=== PATIENT | male | born 1940 | race Caucasian/White ===

== ENCOUNTER 2018-11-28 13:23 | Inpatient (IN) | payer MEDICARE ==
[~2018-11-28] VITALS: Ht 180.3 cm; Wt 75.0 kg
[2018-11-28] MEDS ORDERED: ALBUTEROL/IPRATROPIUM 2.5MG/0.5MG, 3 ML ONE (14:24)
[2018-11-28] MEDS ORDERED: ACETAMINOPHEN 500 MG TABLET ONE (14:26)
[2018-11-28] MEDS ORDERED: ALBUTEROL/IPRATROPIUM 2.5MG/0.5MG, 3 ML NPPB ONE (14:30)
[2018-11-28] MEDS ORDERED: SODIUM CHLORIDE FLUSH 10ML SYR IVF ONE (14:30)
[2018-11-28] MEDS ORDERED: SODIUM CHLORIDE 0.9% 1,000ML IVBOLUS ONE ×2 (14:30→15:30)
[2018-11-28] MEDS ORDERED: ACETAMINOPHEN 500 MG TABLET PO ONE (14:30)
[2018-11-28 14:33] LABS: BASOPHILS # (AUTO) 0.03 x10^3/uL (0-0.1); BASOPHILS % (AUTO) 0 % (0-1); EOSINOPHILS % (AUTO) 0 % (1-7); LYMPHOCYTES # (AUTO) 0.72 x10^3/uL (1-3.4); LYMPHOCYTES % (AUTO) 5 % (22-44); MD NO; MEAN CORPUSCULAR HEMOGLOBIN 34.2 pg (27.5-34.5); MEAN CORPUSCULAR VOLUME 100.7 fL (81-97); MEAN PLATELET VOLUME 9.5 fL (7.4-10.4); MONOCYTES # (AUTO) 0.75 x10^3/uL (0.2-0.8); MONOCYTES % (AUTO) 6 % (2-9); NEUTROPHILS # (AUTO) 11.94 x10^3/uL (1.8-6.8); NEUTROPHILS % (AUTO) 89 % (42-75); PLATELET COUNT 270 x10^3/uL (130-400); RED BLOOD COUNT 4.49 x10^6/uL (4.38-5.82); RED CELL DISTRIBUTION WIDTH 13.6 % (9.4-14.8)
[2018-11-28 14:45] LABS: ALBUMIN 4.3 g/dL (3.4-5.0); ANION GAP 7 mmol/L (5-15); CALCIUM 10.1 mg/dL (8.5-10.1); CHLORIDE 96 mmol/L (98-107)
[2018-11-28 14:50] LABS: CREATININE 1.38 mg/dL (0.7-1.3)
[2018-11-28 14:58] LABS: RAPID INFLUENZA A Negative (Negative); RAPID INFLUENZA B Negative (Negative)
[2018-11-28] MEDS ORDERED: CEFTRIAXONE PMX 1GM/50ML 50 ML ONE (15:21)
[2018-11-28] MEDS ORDERED: AZITHROMYCIN 500 MG in SODIUM CHLORIDE 0.9% 250 ML IV ONE (15:30)
[2018-11-28] MEDS ORDERED: CEFTRIAXONE PMX 1GM/50ML 50 ML IVPB ONE (15:30)
[2018-11-28 15:47] LABS: MICROSCOPIC AUTO
[2018-11-28 16:00] LABS: CULTURE INDICATED? NO
--- NOTE | 2018-11-28 16:21 | NUR ---
TASK RN: NO S/S OF ABX RXN NOTED. SECOND ABX INITIATED. BC X TWO DRAWN PRIOR TO ADMIN.
[2018-11-28] MEDS ORDERED: ACETAMINOPHEN 325 MG TABLET PO PRN (16:30)
[2018-11-28] MEDS ORDERED: OXYcodone IR 5MG TABLET PO PRN (16:30)
[2018-11-28] MEDS ORDERED: DOCUSATE 100 MG CAPSULE PO PRN (16:30)
[2018-11-28] MEDS ORDERED: ENOXAPARIN 40 MG/0.4 ML SQ SCH (16:30)
[2018-11-28] MEDS ORDERED: LABETALOL 5MG/ML, 20ML IVPush PRN (16:30)
[2018-11-28] MEDS ORDERED: GUAIFENESIN/COD200MG-20MG/10ML LIQUID PO PRN (16:30)
[2018-11-28] MEDS ORDERED: ONDANSETRON 2MG/ML, 2ML IVPush PRN (16:30)
[2018-11-28] MEDS ORDERED: NITROGLYCERIN 0.4 MG BOTTLE (25 TABS) SL PRN (16:30)
[2018-11-28 17:29] VITALS: BP 120/75
[2018-11-28] MEDS: LACTATED RINGERS 1,000 ML IV SCH (18:05)
[2018-11-28] MEDS ORDERED: ALBUTEROL/IPRATROPIUM 2.5MG/0.5MG, 3 ML NPPB SCH (19:00)
[2018-11-28 19:15] VITALS: BP 115/66
[2018-11-28] MEDS ORDERED: ALBUTEROL SULFATE 2.5 MG/3 ML NPPB PRN (19:30)
[2018-11-28] MEDS: ALBUTEROL/IPRATROPIUM 2.5MG/0.5MG, 3 ML NPPB SCH (19:59)
[2018-11-28] MEDS: BUDESONIDE 0.5 MG/2 ML INHA NPPB SCH (19:59)
[2018-11-28 21:12] LABS: TROPONIN I 0.672 ng/mL (0.000-0.045)
[2018-11-29] MEDS ORDERED: MAGNESIUM SULFATE PMX 4GM/100M 100 ML IVPB ONE (01:00)
[2018-11-29 01:17] VITALS: BP 144/84
[2018-11-29] MEDS: ALBUTEROL/IPRATROPIUM 2.5MG/0.5MG, 3 ML NPPB SCH ×4 (03:35→21:50)
[2018-11-29] MEDS: LACTATED RINGERS 1,000 ML IV SCH (05:08)
[2018-11-29 06:09] LABS: MEAN CORPUSCULAR HEMOGLOBIN 33.2 pg (27.5-34.5); MEAN CORPUSCULAR HGB CONC 33.3 g/dL (33.2-36.2); MEAN CORPUSCULAR VOLUME 99.7 fL (81-97); MEAN PLATELET VOLUME 9.5 fL (7.4-10.4); PLATELET COUNT 209 x10^3/uL (130-400); RED CELL DISTRIBUTION WIDTH 13.5 % (9.4-14.8)
[2018-11-29 06:19] LABS: ANION GAP 9 mmol/L (5-15); CALCIUM 8.6 mg/dL (8.5-10.1); CHLORIDE 101 mmol/L (98-107); CREATININE 1.19 mg/dL (0.7-1.3)
[2018-11-29 06:50] VITALS: BP 123/77
[2018-11-29 06:51] LABS: MD SCAN
[2018-11-29 06:53] LABS: BASOPHILS % (AUTO) 0 % (0-1); EOSINOPHILS % (AUTO) 0 % (1-7); LYMPHOCYTES # (AUTO) 0.23 x10^3/uL (1-3.4); LYMPHOCYTES % (AUTO) 2 % (22-44); MONOCYTES # (AUTO) 0.71 x10^3/uL (0.2-0.8); MONOCYTES % (AUTO) 6 % (2-9); NEUTROPHILS # (AUTO) 11.47 x10^3/uL (1.8-6.8); NEUTROPHILS % (AUTO) 93 % (42-75)
[2018-11-29] MEDS ORDERED: ATORVASTATIN 80 MG TABLET ONE (08:53)
[2018-11-29] MEDS ORDERED: METOPROLOL TARTRATE 25 MG TABLET ONE (08:53)
[2018-11-29] MEDS ORDERED: ASPIRIN 325 MG TABLET ONE (08:54)
[2018-11-29] MEDS ORDERED: POTASSIUM CHLORIDE 20 MEQ TAB.ER.PRT ONE (08:54)
[2018-11-29] MEDS: METOPROLOL TARTRATE 25 MG TABLET PO SCH ×2 (08:56→17:51)
[2018-11-29] MEDS: ATORVASTATIN 80 MG TABLET PO SCH ×2 (08:56→21:44)
[2018-11-29] MEDS: POTASSIUM CHLORIDE 20 MEQ TAB.ER.PRT PO SCH ×2 (08:56→14:09)
[2018-11-29] MEDS: ASPIRIN 325 MG TABLET PO SCH (08:56)
[2018-11-29] MEDS: BUDESONIDE 0.5 MG/2 ML INHA NPPB SCH ×2 (09:00→16:15)
[2018-11-29] MEDS ORDERED: TIOT18CA INH (10:49)
[2018-11-29] MEDS ORDERED: AMLO10TA8 PO (10:49)
[2018-11-29] MEDS: ENOXAPARIN 80 MG/0.8 ML SQ SCH (12:24)
[2018-11-29] MEDS: AZITHROMYCIN 500 MG in SODIUM CHLORIDE 0.9% 250 ML IV SCH (12:25)
[2018-11-29 12:26] VITALS: BP 149/85
[2018-11-29] MEDS: CEFTRIAXONE PMX 1GM/50ML 50 ML IV SCH (14:04)
[2018-11-29 20:22] VITALS: BP 135/76
[2018-11-30] MEDS: ENOXAPARIN 80 MG/0.8 ML SQ SCH (00:48)
[2018-11-30 02:13] VITALS: BP 167/81
[2018-11-30] MEDS: ALBUTEROL/IPRATROPIUM 2.5MG/0.5MG, 3 ML NPPB SCH ×4 (03:30→22:05)
[2018-11-30] MEDS: ASPIRIN 325 MG TABLET PO SCH (05:24)
[2018-11-30] MEDS: METOPROLOL TARTRATE 25 MG TABLET PO SCH ×2 (05:25→17:53)
[2018-11-30 06:19] LABS: BASOPHILS % (AUTO) 0 % (0-1); EOSINOPHILS % (AUTO) 0 % (1-7); LYMPHOCYTES # (AUTO) 0.55 x10^3/uL (1-3.4); LYMPHOCYTES % (AUTO) 4 % (22-44); MD NO; MEAN CORPUSCULAR HEMOGLOBIN 34.4 pg (27.5-34.5); MEAN CORPUSCULAR HGB CONC 34.3 g/dL (33.2-36.2); MEAN CORPUSCULAR VOLUME 100.3 fL (81-97); MEAN PLATELET VOLUME 9.8 fL (7.4-10.4); MONOCYTES # (AUTO) 0.98 x10^3/uL (0.2-0.8); MONOCYTES % (AUTO) 8 % (2-9); NEUTROPHILS # (AUTO) 11.24 x10^3/uL (1.8-6.8); NEUTROPHILS % (AUTO) 88 % (42-75); PLATELET COUNT 205 x10^3/uL (130-400); RED BLOOD COUNT 3.59 x10^6/uL (4.38-5.82); RED CELL DISTRIBUTION WIDTH 13.6 % (9.4-14.8)
[2018-11-30 06:34] LABS: ANION GAP 7 mmol/L (5-15); CALCIUM 8.7 mg/dL (8.5-10.1); CHLORIDE 102 mmol/L (98-107)
[2018-11-30 06:39] LABS: CREATININE 1.02 mg/dL (0.7-1.3)
[2018-11-30 07:13] VITALS: BP 167/82
[2018-11-30] MEDS: BUDESONIDE 0.5 MG/2 ML INHA NPPB SCH ×2 (09:28→22:05)
[2018-11-30] MEDS: AZITHROMYCIN 500 MG in SODIUM CHLORIDE 0.9% 250 ML IV SCH (11:48)
[2018-11-30] MEDS: CEFTRIAXONE PMX 1GM/50ML 50 ML IV SCH (13:38)
[2018-11-30 13:46] VITALS: BP 162/79
[2018-11-30 18:52] VITALS: BP 151/81
[2018-11-30] MEDS: ATORVASTATIN 80 MG TABLET PO SCH (20:38)
[2018-12-01] MEDS: ALBUTEROL/IPRATROPIUM 2.5MG/0.5MG, 3 ML NPPB SCH ×5 (02:15→20:35)
[2018-12-01 03:51] VITALS: BP 152/62
[2018-12-01] MEDS: ASPIRIN 325 MG TABLET PO SCH (05:29)
[2018-12-01] MEDS: METOPROLOL TARTRATE 25 MG TABLET PO SCH (05:30)
[2018-12-01 06:01] LABS: ANION GAP 5 mmol/L (5-15); BASOPHILS % (AUTO) 0 % (0-1); CALCIUM 8.9 mg/dL (8.5-10.1); CHLORIDE 102 mmol/L (98-107); EOSINOPHILS % (AUTO) 0 % (1-7); LYMPHOCYTES # (AUTO) 0.49 x10^3/uL (1-3.4); LYMPHOCYTES % (AUTO) 5 % (22-44); MD NO; MEAN CORPUSCULAR HEMOGLOBIN 33.5 pg (27.5-34.5); MEAN CORPUSCULAR HGB CONC 33.5 g/dL (33.2-36.2); MEAN CORPUSCULAR VOLUME 100.1 fL (81-97); MEAN PLATELET VOLUME 9.3 fL (7.4-10.4); MONOCYTES # (AUTO) 1.01 x10^3/uL (0.2-0.8); MONOCYTES % (AUTO) 11 % (2-9); NEUTROPHILS # (AUTO) 8.17 x10^3/uL (1.8-6.8); NEUTROPHILS % (AUTO) 84 % (42-75); PLATELET COUNT 227 x10^3/uL (130-400); RED BLOOD COUNT 3.69 x10^6/uL (4.38-5.82); RED CELL DISTRIBUTION WIDTH 13.4 % (9.4-14.8)
[2018-12-01 06:02] LABS: CREATININE 1.01 mg/dL (0.7-1.3)
[2018-12-01] MEDS: BUDESONIDE 0.5 MG/2 ML INHA NPPB SCH ×2 (07:44→20:35)
[2018-12-01 08:06] VITALS: BP 181/89
[2018-12-01] MEDS ORDERED: METOPROLOL TARTRATE 25 MG TABLET PO ONE (09:00)
[2018-12-01] MEDS ORDERED: LABETALOL 5 MG/ML SYRINGE IVPush PRN (09:00)
[2018-12-01] MEDS: ENOXAPARIN 40 MG/0.4 ML SQ SCH (09:26)
[2018-12-01 09:28] VITALS: BP 163/86
[2018-12-01] MEDS ORDERED: ENOXAPARIN 80 MG/0.8 ML SQ SCH (10:00)
[2018-12-01] MEDS: AZITHROMYCIN 500 MG in SODIUM CHLORIDE 0.9% 250 ML IV SCH (12:05)
[2018-12-01 12:45] VITALS: BP 161/78
[2018-12-01] MEDS: CEFTRIAXONE PMX 1GM/50ML 50 ML IV SCH (14:09)
[2018-12-01] MEDS ORDERED: FUROSEMIDE 40 MG/4 ML IV ONE (15:00)
[2018-12-01] MEDS: CARVEDILOL 6.25 MG TABLET PO SCH (17:16)
[2018-12-01] MEDS: ATORVASTATIN 80 MG TABLET PO SCH (21:01)
[2018-12-01 21:29] VITALS: BP 154/86
[2018-12-02 02:25] VITALS: BP 165/96
[2018-12-02] MEDS: ALBUTEROL/IPRATROPIUM 2.5MG/0.5MG, 3 ML NPPB SCH ×3 (03:24→15:25)
[2018-12-02 05:33] VITALS: BP 154/70
[2018-12-02] MEDS: ASPIRIN 325 MG TABLET PO SCH (05:34)
[2018-12-02] MEDS: CARVEDILOL 6.25 MG TABLET PO SCH (05:35)
[2018-12-02 07:48] VITALS: BP 160/87
[2018-12-02 07:50] LABS: CHLORIDE 96 mmol/L (98-107)
[2018-12-02 07:54] LABS: ANION GAP 5 mmol/L (5-15); CALCIUM 8.9 mg/dL (8.5-10.1); CREATININE 0.95 mg/dL (0.7-1.3)
[2018-12-02] MEDS: ENOXAPARIN 40 MG/0.4 ML SQ SCH (08:16)
[2018-12-02] MEDS: BUDESONIDE 0.5 MG/2 ML INHA NPPB SCH (10:00)
[2018-12-02] MEDS: AZITHROMYCIN 500 MG in SODIUM CHLORIDE 0.9% 250 ML IV SCH (12:17)
[2018-12-02] MEDS: CEFTRIAXONE PMX 1GM/50ML 50 ML IV SCH (13:14)
[2018-12-02] MEDS ORDERED: ASPI325T17 PO (16:36)
[2018-12-02] MEDS ORDERED: PRED10TA PO (16:39)
[2018-12-02] MEDS ORDERED: ALBU8.5H8 IH (16:39)
[2018-12-02] MEDS ORDERED: ATOR-2 PO (16:39)
[2018-12-02] MEDS ORDERED: CARV6.2512 PO (16:39)
[2018-12-02] MEDS ORDERED: AMOX1TAB12 PO (16:40)
== END 2018-12-02 18:59 | disposition home or self-care (01) | DRG 871 ==
LOC: ED 15:27 → EDIP 15:28 → ED 15:45 → 4EST 17:09 → UNDODISIN 12-02 17:49
PROVIDERS: ADMIT Internal Medicine; ATTEND Internal Medicine
DX: A41.9 Sepsis, unspecified organism (principal); J96.01 Acute respiratory failure with hypoxia; J18.9 Pneumonia, unspecified organism; E87.1 Hypo-osmolality and hyponatremia; J44.0 Chronic obstructive pulmonary disease with (acute) lower respiratory infection; E83.39 Other disorders of phosphorus metabolism; R65.20 Severe sepsis without septic shock; E83.42 Hypomagnesemia; E87.6 Hypokalemia; I11.0 Hypertensive heart disease with heart failure; I50.9 Heart failure, unspecified; Z96.1 Presence of intraocular lens; I25.10 Atherosclerotic heart disease of native coronary artery without angina pectoris; I27.20 Pulmonary hypertension, unspecified; K44.9 Diaphragmatic hernia without obstruction or gangrene; Z87.891 Personal history of nicotine dependence; Z98.41 Cataract extraction status, right eye; Z98.42 Cataract extraction status, left eye
CPT/HCPCS: 0399T; 36415; 71045; 71046; 80048; 81001; 82040; 83605; 83735; 83880; 84100; 84145; 84484; 85025; 87040; 87400; 93005; 93306; 94640; 96361; 96365; 99285; G0378; J0456; J0696; J1650; J1940; J7620; J7626; J3475; J7030; J7050; J7120; J7512

== ENCOUNTER → 2019-01-06 | Outpatient (CLI) | payer MEDICARE ==
[~2019-01-06] MED LIST: ALBU8.5H8 IH; AMLO10TA8 PO; AMOX1TAB12 PO; ASPI325T17 PO; ATOR-2 PO; CARV6.2512 PO; PRED10TA PO; TIOT18CA INH
== END | disposition home or self-care (01) ==
LOC: CFH 09:00
PROVIDERS: ATTEND Internal Medicine Cardiovascular Disease
DX: J98.11 Atelectasis (principal); K44.9 Diaphragmatic hernia without obstruction or gangrene; E78.2 Mixed hyperlipidemia; I10 Essential (primary) hypertension; I25.10 Atherosclerotic heart disease of native coronary artery without angina pectoris
CPT/HCPCS: 71046

== ENCOUNTER 2019-01-22 09:58 | Day surgery (SDC) | payer MEDICARE ==
[2019-01-20 09:14] VITALS: BP 144/85
[2019-01-20 10:38] LABS: BASOPHILS # (AUTO) 0.01 x10^3/uL (0-0.1); BASOPHILS % (AUTO) 0 % (0-1); EOSINOPHILS # (AUTO) 0.01 x10^3/uL (0-0.4); EOSINOPHILS % (AUTO) 0 % (1-7); LYMPHOCYTES # (AUTO) 1.01 x10^3/uL (1-3.4); LYMPHOCYTES % (AUTO) 13 % (22-44); MD NO; MEAN CORPUSCULAR HEMOGLOBIN 34.1 pg (27.5-34.5); MEAN CORPUSCULAR HGB CONC 34.1 g/dL (33.2-36.2); MEAN CORPUSCULAR VOLUME 99.8 fL (81-97); MEAN PLATELET VOLUME 9.2 fL (7.4-10.4); MONOCYTES # (AUTO) 0.87 x10^3/uL (0.2-0.8); MONOCYTES % (AUTO) 11 % (2-9); NEUTROPHILS # (AUTO) 6.19 x10^3/uL (1.8-6.8); NEUTROPHILS % (AUTO) 77 % (42-75); PLATELET COUNT 240 x10^3/uL (130-400); RED BLOOD COUNT 3.52 x10^6/uL (4.38-5.82); RED CELL DISTRIBUTION WIDTH 13.9 % (9.4-14.8)
[2019-01-20 10:48] LABS: ANION GAP 4 mmol/L (5-15); CALCIUM 9.2 mg/dL (8.5-10.1); CHLORIDE 101 mmol/L (98-107); CREATININE 1.07 mg/dL (0.7-1.3)
[~2019-01-22] VITALS: Ht 180.3 cm; Wt 72.7 kg
[~2019-01-22 09:58] MED LIST changes: +ALBU8.5H8 INH; +ASPI-496 PO; +FURO20TA3 PO; +IRBE150T25 PO; +POTA10TA6 PO; +potassium chloride PO
[2019-01-22] MEDS ORDERED: SODIUM CHLORIDE 0.9% 1,000 ML IV SCH ×2 (10:23→13:25)
[2019-01-22] MEDS ORDERED: ASPIRIN 325 MG TABLET EC PO ONE (10:30)
[2019-01-22] MEDS ORDERED: FURO20TA3 PO (10:35)
[2019-01-22] MEDS ORDERED: NITROGLYCERIN 5 MG/ML, 10ML ONE (10:37)
[2019-01-22] MEDS ORDERED: ASPIRIN 325 MG TABLET EC ONE (10:46)
[2019-01-22 11:01] LABS: ANION GAP 7 mmol/L (5-15); CALCIUM 9.5 mg/dL (8.5-10.1); CHLORIDE 105 mmol/L (98-107); CREATININE 1.13 mg/dL (0.7-1.3)
[2019-01-22] MEDS ORDERED: MIDAZOLAM 1 MG/ML, 5ML ONE (11:35)
[2019-01-22] MEDS ORDERED: HEPARIN 1,000 UNITS/ML, 10ML ONE (11:36)
[2019-01-22] MEDS ORDERED: FENTANYL PF 100 MCG/2ML ONE (11:36)
[2019-01-22] MEDS ORDERED: LIDOCAINE-MPF 1%, 5ML ONE (11:36)
[2019-01-22] MEDS ORDERED: VERAPAMIL 2.5 MG/ML, 2ML ONE (11:36)
[2019-01-22] MEDS ORDERED: BIVALIRUDIN 250 MG ONE (12:07)
== END 2019-01-22 15:30 | disposition home or self-care (01) ==
LOC: CACL 09:58
PROVIDERS: ATTEND Internal Medicine Cardiovascular Disease
DX: I25.10 Atherosclerotic heart disease of native coronary artery without angina pectoris (principal); I25.83 Coronary atherosclerosis due to lipid rich plaque; I25.84 Coronary atherosclerosis due to calcified coronary lesion; I35.0 Nonrheumatic aortic (valve) stenosis; I77.1 Stricture of artery; I10 Essential (primary) hypertension; E78.2 Mixed hyperlipidemia; J44.9 Chronic obstructive pulmonary disease, unspecified; Z79.82 Long term (current) use of aspirin; Z79.899 Other long term (current) drug therapy; Z87.01 Personal history of pneumonia (recurrent); Z99.81 Dependence on supplemental oxygen; Z95.5 Presence of coronary angioplasty implant and graft
CPT/HCPCS: 36415; 75625; 80048; 85025; 93454; 99156; C1769; C1894; J1644; J2250; J3010; Q9967; J0583

== ENCOUNTER → 2019-02-24 | Outpatient (CLI) | payer MEDICARE ==
[~2019-02-24] MED LIST changes: +METOPROLOL 1 MG/ML, 5ML ONE; +VISIPAQUE 320 MG/ML, 150ML BOTTLE ONE
[2019-02-24 12:46] LABS: CREATININE 1.23 mg/dL (0.7-1.3)
== END | disposition home or self-care (01) ==
LOC: CVU 11:16
PROVIDERS: ATTEND Internal Medicine Cardiovascular Disease
DX: I65.23 Occlusion and stenosis of bilateral carotid arteries (principal); I70.0 Atherosclerosis of aorta; M51.36 Other intervertebral disc degeneration, lumbar region; J44.9 Chronic obstructive pulmonary disease, unspecified; I25.10 Atherosclerotic heart disease of native coronary artery without angina pectoris; I10 Essential (primary) hypertension; Z87.891 Personal history of nicotine dependence
CPT/HCPCS: 36415; 71275; 74174; 82565; 93880; 94060; 94726; 94729; Q9967

== ENCOUNTER 2019-03-21 09:03 | Day surgery (SDC) | payer MEDICARE ==
[~2019-03-21] VITALS: Ht 180.3 cm; Wt 74.7 kg
[2019-03-22 07:26] VITALS: BP 162/82
== END 2019-03-22 11:30 | disposition home or self-care (01) ==
LOC: CACL 09:03 → 5SO 12:48 → CACL 12:48 → UNDOADMOB 12:48 → 5SO 13:04 → DCLOUNGE 03-22 11:24 → CACL 03-22 11:30 → UNDODISOB 03-22 11:30
PROVIDERS: ATTEND Internal Medicine Cardiovascular Disease
DX: I45.4 Nonspecific intraventricular block (principal); I25.10 Atherosclerotic heart disease of native coronary artery without angina pectoris; R00.1 Bradycardia, unspecified; I35.0 Nonrheumatic aortic (valve) stenosis; I10 Essential (primary) hypertension; E78.5 Hyperlipidemia, unspecified; Z87.891 Personal history of nicotine dependence; Z79.82 Long term (current) use of aspirin; Z79.899 Other long term (current) drug therapy
CPT/HCPCS: 33208; 36415; 71045; 80048; 84484; 85025; 93005; 93454; 96365; 96366; 96375; 97161; 99156; 99157; C1725; C1769; C1779; C1785; C1874; C1887; C1892; C1894; C9600; J0360; J0583; J0690; J2250; J3010; J7030; Q9967; 93458; G0378

== ENCOUNTER 2019-03-27 07:20 | Inpatient (IN) | payer MEDICARE ==
[~2019-03-27] VITALS: Ht 180.3 cm; Wt 71.3 kg
[~2019-03-27 07:20] MED LIST changes: +ACET325T26 PO; +AMLO2.5T2 PO; +ASPI-515 PO; +ATOR40TA PO; +CHLORHEXIDINE 15 ML UDC ONE; +CHOL100012 PO; +CLOP75TA PO; -METOPROLOL 1 MG/ML, 5ML ONE; -VISIPAQUE 320 MG/ML, 150ML BOTTLE ONE
[2019-03-27] MEDS ORDERED: SODIUM CHLORIDE 0.9% 1,000 ML IV ONE (08:06)
[2019-03-27 08:30] VITALS: BP 152/81
[2019-03-27] MEDS ORDERED: KETOROLAC 30 MG/1 ML IVPush PRN (08:30)
[2019-03-27] MEDS ORDERED: CHLORHEXIDINE 15 ML UDC MM PRN (08:30)
[2019-03-27] MEDS ORDERED: PLEASE ENTER HEIGHT AND WEIGHT MC SCH (08:30)
[2019-03-27 08:50] LABS: BASOPHILS # (AUTO) 0.04 x10^3/uL (0-0.1); BASOPHILS % (AUTO) 0 % (0-1); EOSINOPHILS # (AUTO) 0.06 x10^3/uL (0-0.4); EOSINOPHILS % (AUTO) 1 % (1-7); LYMPHOCYTES # (AUTO) 1.19 x10^3/uL (1-3.4); LYMPHOCYTES % (AUTO) 14 % (22-44); MD NO; MEAN CORPUSCULAR HEMOGLOBIN 32.3 pg (27.5-34.5); MEAN CORPUSCULAR HGB CONC 32.1 g/dL (33.2-36.2); MEAN CORPUSCULAR VOLUME 100.8 fL (81-97); MEAN PLATELET VOLUME 9.7 fL (7.4-10.4); MONOCYTES # (AUTO) 1.03 x10^3/uL (0.2-0.8); MONOCYTES % (AUTO) 12 % (2-9); NEUTROPHILS % (AUTO) 73 % (42-75); PLATELET COUNT 242 x10^3/uL (130-400); RED BLOOD COUNT 3.91 x10^6/uL (4.38-5.82); RED CELL DISTRIBUTION WIDTH 13.4 % (9.4-14.8)
[2019-03-27 08:54] LABS: INTERNATIONAL NORMALIZED RATIO 0.98 (0.93-1.1); PROTHROMBIN TIME 10.3 Seconds (9.6-11.5)
[2019-03-27 08:55] LABS: ALANINE AMINOTRANSFERASE 15 U/L (12-78); ALBUMIN 3.4 g/dL (3.4-5.0); ANION GAP 8 mmol/L (5-15); CALCIUM 9.5 mg/dL (8.5-10.1); CHLORIDE 109 mmol/L (98-107); CREATININE 1.31 mg/dL (0.7-1.3)
[2019-03-27 09:00] LABS: ALKALINE PHOSPHATASE 125 U/L (45-117); BILIRUBIN,TOTAL 0.7 mg/dL (0.2-1.0); TOTAL PROTEIN 6.6 g/dL (6.4-8.2)
[2019-03-27] MEDS ORDERED: DEXAMETHASONE 4 MG/ML, 1ML ONE ×3 (10:15→10:16)
[2019-03-27] MEDS ORDERED: FENTANYL PF 100 MCG/2ML ONE ×2 (10:15→11:14)
[2019-03-27] MEDS ORDERED: PROTAMINE SULFATE 10 MG/ML, 5ML ONE (10:16)
[2019-03-27] MEDS ORDERED: CEFAZOLIN 1,000 MG ONE (10:16)
[2019-03-27] MEDS ORDERED: SUCCINYLCHOLINE 20 MG/ML, 10ML ONE ×2 (10:16)
[2019-03-27] MEDS ORDERED: HEPARIN 1,000 UNITS/ML, 30ML ONE ×2 (10:16)
[2019-03-27] MEDS ORDERED: PHENYLEPHRINE 10 MG/ML ONE ×2 (10:16)
[2019-03-27] MEDS ORDERED: PROPOFOL 10 MG/ML, 20ML ONE (10:16)
[2019-03-27] MEDS ORDERED: ONDANSETRON 2MG/ML, 2ML ONE (10:16)
[2019-03-27] MEDS ORDERED: ROCURONIUM 10MG/ML,5ML ONE ×2 (10:16)
[2019-03-27] MEDS ORDERED: hydrALAzine 20 MG/ML, 1ML IVPush PRN (12:00)
[2019-03-27] MEDS ORDERED: HYDROcodone/APAP 5/325 TABLET PO PRN (12:00)
[2019-03-27] MEDS ORDERED: ACETAMINOPHEN 325 MG TABLET PO PRN ×2 (12:00)
[2019-03-27] MEDS ORDERED: LABETALOL 20 MG/4 ML IVPush PRN (12:00)
[2019-03-27] MEDS ORDERED: ALBUTEROL SULFATE 2.5 MG/3 ML HHN PRN (12:00)
[2019-03-27] MEDS ORDERED: ALBUTEROL SULFATE 2.5 MG/3 ML NPPB SCH (12:30)
[2019-03-27] MEDS: ALBUTEROL SULFATE 2.5 MG/3 ML NPPB SCH ×2 (14:19→22:12)
[2019-03-27 15:23] VITALS: BP 122/64
[2019-03-27 20:31] VITALS: BP 126/68
[2019-03-27 20:41] VITALS: BP 135/70
[2019-03-27] MEDS ORDERED: ATORVASTATIN 40 MG TABLET PO SCH (21:00)
[2019-03-28 01:27] VITALS: BP 121/72
[2019-03-28] MEDS: ALBUTEROL/IPRATROPIUM 2.5MG/0.5MG, 3 ML NPPB SCH ×2 (02:20→09:00)
[2019-03-28 05:51] LABS: CALCIUM 9.2 mg/dL (8.5-10.1); CHLORIDE 106 mmol/L (98-107)
[2019-03-28 05:54] LABS: MEAN CORPUSCULAR HEMOGLOBIN 32.3 pg (27.5-34.5); MEAN CORPUSCULAR HGB CONC 32.2 g/dL (33.2-36.2); MEAN CORPUSCULAR VOLUME 100.2 fL (81-97); PLATELET COUNT 200 x10^3/uL (130-400); RED CELL DISTRIBUTION WIDTH 12.9 % (9.4-14.8)
[2019-03-28 05:55] LABS: ANION GAP 7 mmol/L (5-15); CREATININE 1.21 mg/dL (0.7-1.3)
[2019-03-28 06:27] LABS: BASOPHILS % (AUTO) 0 % (0-1); EOSINOPHILS % (AUTO) 0 % (1-7); LYMPHOCYTES # (AUTO) 0.42 x10^3/uL (1-3.4); LYMPHOCYTES % (AUTO) 4 % (22-44); MD SCAN; MONOCYTES # (AUTO) 0.97 x10^3/uL (0.2-0.8); MONOCYTES % (AUTO) 8 % (2-9); NEUTROPHILS # (AUTO) 10.56 x10^3/uL (1.8-6.8); NEUTROPHILS % (AUTO) 88 % (42-75)
[2019-03-28 07:26] VITALS: BP 142/67
[2019-03-28] MEDS ORDERED: IPRATROPIUM 0.5 MG/2.5 ML INHA HHN SCH (09:00)
[2019-03-28] MEDS ORDERED: POTASSIUM CHLORIDE 10 MEQ TABLET.ER PO SCH (09:00)
[2019-03-28] MEDS ORDERED: AMLODIPINE 2.5 MG TABLET PO SCH (09:00)
[2019-03-28] MEDS ORDERED: CLOPIDOGREL 75 MG TABLET PO SCH (09:00)
[2019-03-28] MEDS ORDERED: ASPIRIN 81 MG TABLET EC PO SCH (09:00)
[2019-03-28] MEDS ORDERED: CHOLECALCIFEROL 1,000 UNIT TABLET PO SCH (09:00)
[2019-03-28] MEDS ORDERED: IRBESARTAN 150 MG TABLET PO SCH (09:00)
[2019-03-28] MEDS ORDERED: FUROSEMIDE 20 MG TABLET PO SCH (09:00)
[2019-03-28 12:51] VITALS: BP 144/72
== END 2019-03-28 14:15 | disposition home or self-care (01) | DRG 266 ==
LOC: ORIP 07:20 → CCU 11:39 → 5SO 15:13 → DCLOUNGE 03-28 14:05
PROVIDERS: ADMIT Internal Medicine Cardiovascular Disease; ATTEND Internal Medicine Cardiovascular Disease
PROC: B246ZZ4 Ultrasonography of Right and Left Heart, Transesophageal (ICD-10-PCS; 2019-03-27)
PROC: 03HY32Z Insertion of Monitoring Device into Upper Artery, Percutaneous Approach (ICD-10-PCS; 2019-03-27)
PROC: B3101ZZ Fluoroscopy of Thoracic Aorta using Low Osmolar Contrast (ICD-10-PCS; 2019-03-27)
PROC: 02RF38Z Replacement of Aortic Valve with Zooplastic Tissue, Percutaneous Approach (ICD-10-PCS; principal; 2019-03-27 11:00)
DX: I35.0 Nonrheumatic aortic (valve) stenosis (principal); Z00.6 Encounter for examination for normal comparison and control in clinical research program; I50.33 Acute on chronic diastolic (congestive) heart failure; I11.0 Hypertensive heart disease with heart failure; I77.819 Aortic ectasia, unspecified site; J44.9 Chronic obstructive pulmonary disease, unspecified; I25.10 Atherosclerotic heart disease of native coronary artery without angina pectoris; I45.10 Unspecified right bundle-branch block; E78.5 Hyperlipidemia, unspecified; Z72.0 Tobacco use; Z95.0 Presence of cardiac pacemaker; Z95.5 Presence of coronary angioplasty implant and graft; Z95.818 Presence of other cardiac implants and grafts
CPT/HCPCS: 33361; 36415; 80048; 80053; 83880; 85025; 85347; 85610; 85730; 86850; 86900; 86923; 87081; 93005; 93306; 93312; 93321; 93325; 93355; 94640; C1760; C1769; C1894; G0378; J0690; J1100; J1644; J1885; J2405; J2704; J2720; J3010; J7613; J7620; J0330; J0360; J2370; J3490; Q9967

== ENCOUNTER 2019-04-23 08:21 | Outpatient (CLI) | payer MEDICARE | END 2019-04-23 23:59 | disposition home or self-care (01) | LOC: CVU 08:21 | PROVIDERS: ATTEND Internal Medicine Cardiovascular Disease | DX: I08.3 Combined rheumatic disorders of mitral, aortic and tricuspid valves (principal); I10 Essential (primary) hypertension; J44.9 Chronic obstructive pulmonary disease, unspecified; Z95.0 Presence of cardiac pacemaker; Z87.891 Personal history of nicotine dependence | CPT/HCPCS: 0399T; 93306 ==

== ENCOUNTER 2019-08-25 09:54 | Emergency (ER) | payer MEDICARE ==
[~2019-08-25] VITALS: Ht 177.8 cm; Wt 71.0 kg
[~2019-08-25 09:54] MED LIST changes: -CHLORHEXIDINE 15 ML UDC ONE
--- NOTE | 2019-08-25 10:20 | NUR ---
Pt to rm 31 from lobby
[2019-08-25 10:30] LABS: BASOPHILS # (AUTO) 0.01 x10^3/uL (0-0.1); BASOPHILS % (AUTO) 0 % (0-1); EOSINOPHILS # (AUTO) 0.13 x10^3/uL (0-0.4); EOSINOPHILS % (AUTO) 2 % (1-7); LYMPHOCYTES # (AUTO) 1.13 x10^3/uL (1-3.4); LYMPHOCYTES % (AUTO) 13 % (22-44); MD NO; MEAN CORPUSCULAR HEMOGLOBIN 28.6 pg (27.5-34.5); MEAN CORPUSCULAR VOLUME 89.5 fL (81-97); MEAN PLATELET VOLUME 7.8 fL (7.4-10.4); MONOCYTES # (AUTO) 0.78 x10^3/uL (0.2-0.8); MONOCYTES % (AUTO) 9 % (2-9); NEUTROPHILS % (AUTO) 76 % (42-75); PLATELET COUNT 288 x10^3/uL (130-400); RED BLOOD COUNT 3.71 x10^6/uL (4.38-5.82); RED CELL DISTRIBUTION WIDTH 15.9 % (9.4-14.8)
--- NOTE | 2019-08-25 10:32 | NUR ---
PT TO ED AFTER PCP TOLD HIM HE HAD BLOOD IN HIS STOOL. PT STATES HE DID NOT KNOW HE HAD BLOOD IN HIS STOOL. PT'S LEFT ARM IS ALSO SWOLLEN AFTER INFECTION (COMPLETED 10 DAYS LEVOFLOXACIN) AND BLE SWELLING. PT CONNECTED TO MONITORS. VSS. NO NEEDS EXPRESSED. CALL LIGHT WITHIN REACH. DR. GARCÍA TO BS FOR ASSESSMENT. AWAITING ORDERS.
[2019-08-25 10:43] LABS: ALANINE AMINOTRANSFERASE 14 U/L (12-78); ALBUMIN 3.4 g/dL (3.4-5.0); ANION GAP 7 mmol/L (5-15); CALCIUM 8.9 mg/dL (8.5-10.1); CHLORIDE 103 mmol/L (98-107)
[2019-08-25 10:45] LABS: ALKALINE PHOSPHATASE 109 U/L (45-117); BILIRUBIN,TOTAL 0.7 mg/dL (0.2-1.0); TOTAL PROTEIN 6.6 g/dL (6.4-8.2)
[2019-08-25] MEDS ORDERED: SODIUM CHLORIDE FLUSH 10ML SYR IVF ONE (11:00)
[2019-08-25] MEDS ORDERED: PANTOPRAZOLE 40 MG IV IVPush ONE (11:00)
[2019-08-25] MEDS ORDERED: PANTOPRAZOLE 40 MG IV ONE (11:19)
--- NOTE | 2019-08-25 11:28 | NUR ---
PT RESTING IN ROOM. VSS. PIV ESTABLISHED AND PT MEDICATED PER MAR. NO NEEDS EXPRESSED. CALL LIGHT WITHIN REACH. ALL RESULTS BACK AT THIS TIME. CHART UP FOR RECHECK.
[2019-08-25] MEDS ORDERED: SODIUM CHLORIDE 0.9% 1,000 ML IV ONE (12:17)
[2019-08-25] MEDS ORDERED: SODIUM CHLORIDE FLUSH 10ML SYR IVF PRN (12:30)
[2019-08-25 12:33] VITALS: BP 161/81
--- NOTE | 2019-08-25 14:08 | NUR ---
report to loretta burgos RN. pt ready for transport.
--- NOTE | 2019-08-25 15:12 | NUR ---
SPOKE WITH MERLY ENCARNACION MD. AFTER PEAKING WITH GI, PT DOES NOT MEET INPT CRITERIA. PLAN TO DC.
== END 2019-08-25 15:59 | disposition home or self-care (01) ==
LOC: ED 12:16 → EDIP 12:17 → UNDOADMIN 12:17 → ED 12:58
DX: K92.1 Melena (principal); D63.8 Anemia in other chronic diseases classified elsewhere; I25.10 Atherosclerotic heart disease of native coronary artery without angina pectoris; I50.9 Heart failure, unspecified; J44.9 Chronic obstructive pulmonary disease, unspecified; Z87.891 Personal history of nicotine dependence
CPT/HCPCS: 36415; 71045; 80053; 83690; 85025; 93005; 96374; 99284; C9113; J7030

== ENCOUNTER 2020-02-06 08:13 | Outpatient (CLI) | payer MEDICARE, MEDICAID ==
[~2020-02-06 08:13] MED LIST changes: +AZIT250T89 PO; +CEFD300C37 PO; -IRBE150T25 PO; +IRBE150T9 PO
== END 2020-02-06 23:59 | disposition home or self-care (01) ==
LOC: ROC 08:13
PROVIDERS: ATTEND Radiology Radiation Oncology
DX: Z08 Encounter for follow-up examination after completed treatment for malignant neoplasm (principal); C61 Malignant neoplasm of prostate; I11.0 Hypertensive heart disease with heart failure; I50.9 Heart failure, unspecified; I25.10 Atherosclerotic heart disease of native coronary artery without angina pectoris; J44.9 Chronic obstructive pulmonary disease, unspecified; E78.5 Hyperlipidemia, unspecified; Z87.891 Personal history of nicotine dependence; Z79.02 Long term (current) use of antithrombotics/antiplatelets; Z79.82 Long term (current) use of aspirin; Z87.01 Personal history of pneumonia (recurrent); Z95.0 Presence of cardiac pacemaker
CPT/HCPCS: 99214; G0463

== ENCOUNTER 2020-02-25 07:56 | Outpatient (CLI) | payer MEDICARE, MEDICAID ==
[2020-02-25] MEDS ORDERED: LEUPROLIDE (ELIGARD) 22.5 MG SYR SQ ONE (09:30)
== END 2020-02-25 23:59 | disposition home or self-care (01) ==
LOC: ROC 07:56
PROVIDERS: ATTEND Radiology Radiation Oncology
DX: Z51.11 Encounter for antineoplastic chemotherapy (principal); C61 Malignant neoplasm of prostate
CPT/HCPCS: 96402; J9217

== ENCOUNTER → 2020-04-14 | Outpatient (CLI) | payer MEDICARE, MEDICAID | END | disposition home or self-care (01) | LOC: CFH 08:15 | PROVIDERS: ATTEND Internal Medicine Cardiovascular Disease | DX: I08.1 Rheumatic disorders of both mitral and tricuspid valves (principal); R06.02 Shortness of breath; I65.29 Occlusion and stenosis of unspecified carotid artery | CPT/HCPCS: 93306 ==

== ENCOUNTER 2020-06-08 07:33 | Outpatient (CLI) | payer MEDICARE, MEDICAID ==
[2020-06-08] MEDS ORDERED: LEUPROLIDE (ELIGARD) 22.5 MG SYR SQ ONE (11:40)
== END 2020-06-08 23:59 | disposition home or self-care (01) ==
LOC: ROC 07:33
PROVIDERS: ATTEND Radiology Radiation Oncology
DX: Z51.11 Encounter for antineoplastic chemotherapy (principal); C61 Malignant neoplasm of prostate
CPT/HCPCS: 96402; J9217

== ENCOUNTER 2020-09-15 12:45 | Outpatient (CLI) | payer MEDICARE, MEDICAID ==
[~2020-09-15 12:45] MED LIST changes: +AMLO-211 PO; -AMLO10TA8 PO
[2020-09-15] MEDS ORDERED: LEUPROLIDE (ELIGARD) 22.5 MG SYR SQ ONE (17:00)
== END 2020-09-15 23:59 | disposition home or self-care (01) ==
LOC: ROC 12:45
PROVIDERS: ATTEND Radiology Radiation Oncology
DX: Z51.11 Encounter for antineoplastic chemotherapy (principal); C61 Malignant neoplasm of prostate
CPT/HCPCS: 96402; J9217

== ENCOUNTER → 2020-12-15 | Outpatient (CLI) | payer MEDICARE, MEDICAID ==
[~2020-12-15] MED LIST changes: -ASPI-515 PO; +ASPI-963 PO; +LEUPROLIDE (ELIGARD) 22.5 MG SYR SQ ONE
== END | disposition home or self-care (01) ==
LOC: ROC 07:44
PROVIDERS: ATTEND Radiology Radiation Oncology
DX: Z51.11 Encounter for antineoplastic chemotherapy (principal); C61 Malignant neoplasm of prostate
CPT/HCPCS: 96402; J9217

== ENCOUNTER 2021-01-05 16:13 | Inpatient (IN) | payer MEDICARE, MEDICAID ==
[~2021-01-05] VITALS: Ht 180.3 cm; Wt 80.0 kg
[~2021-01-05 16:13] MED LIST changes: -LEUPROLIDE (ELIGARD) 22.5 MG SYR SQ ONE
--- NOTE | 2021-01-05 16:28 | NUR ---
BIBA FOR PRODUCTIVE COUGH X 2 WEEKS WITH WHITE SPUTUM. PT CONCERED HE HAS PNA. PT FOUND TO BE 85% ON RA BY EMS, PLACED ON 3 L NC, NOW 93-94%. BLOOD SUGAR 140 WITH EMS AND RIGHT 18 GUAGE PLACED IN AC. 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
[2021-01-05] MEDS ORDERED: FLUT1BLS3 IH (16:44)
[2021-01-05] MEDS ORDERED: CHOL200052 PO (16:44)
[2021-01-05] MEDS ORDERED: CARV3.122 PO (16:44)
[2021-01-05] MEDS ORDERED: ZINC220T2 PO (16:44)
[2021-01-05] MEDS ORDERED: ASCO500T8 PO (16:44)
[2021-01-05] MEDS ORDERED: IRON PO (16:44)
[2021-01-05] MEDS ORDERED: ALBUTEROL/IPRATROPIUM 2.5MG/0.5MG, 3 ML NEB ONE (17:30)
[2021-01-05] MEDS ORDERED: ALBUTEROL SULFATE 2.5 MG/3 ML NPPB ONE ×2 (17:30→19:30)
[2021-01-05] MEDS ORDERED: ALBUTEROL SULFATE 2.5 MG/3 ML ONE ×2 (17:43→19:30)
[2021-01-05] MEDS ORDERED: ALBUTEROL/IPRATROPIUM 2.5MG/0.5MG, 3 ML ONE (17:43)
[2021-01-05 18:01] LABS: BASOPHILS % (AUTO) 0 % (0-1); EOSINOPHILS % (AUTO) 0 % (1-7); LYMPHOCYTES % (AUTO) 7 % (22-44); MEAN CORPUSCULAR HEMOGLOBIN 33.6 pg (27.5-34.5); MEAN CORPUSCULAR HGB CONC 33.6 g/dL (33.2-36.2); MEAN PLATELET VOLUME 8.6 fL (7.4-10.4); MONOCYTES % (AUTO) 8 % (2-9); NEUTROPHILS % (AUTO) 84 % (42-75); PLATELET COUNT 135 x10^3/uL (130-400); RED BLOOD COUNT 3.69 x10^6/uL (4.38-5.82); RED CELL DISTRIBUTION WIDTH 14.4 % (9.4-14.8)
[2021-01-05 18:05] LABS: MD NO
[2021-01-05 18:08] LABS: ALBUMIN 2.9 g/dL (3.4-5.0); ANION GAP 6 mmol/L (5-15); CALCIUM 8.7 mg/dL (8.5-10.1); CHLORIDE 100 mmol/L (98-107); CREATININE 1.29 mg/dL (0.7-1.3)
[2021-01-05] MEDS ORDERED: SODIUM CHLORIDE 0.9%, 500ML IVBOLUS ONE (18:30)
[2021-01-05] MEDS ORDERED: methylPREDNISolone SOD SUCC 125 MG/2 ML IVPush ONE (18:30)
[2021-01-05] MEDS ORDERED: methylPREDNISolone SOD SUCC 125 MG/2 ML ONE (18:37)
--- NOTE | 2021-01-05 18:40 | NUR ---
MEAL TRAY GIVEN
[2021-01-05] MEDS ORDERED: OMNIPAQUE 350 MG/ML, 75ML BOTTLE ONE (19:27)
--- NOTE | 2021-01-05 19:39 | NUR ---
PT RESTING IN [facility], HAS EATEN MOST OF MEAL TRAY. PENDING ADMIT ORDERS.
--- NOTE | 2021-01-05 21:14 | NUR ---
REPORT GIVEN TO JUSTINO SAGE
[2021-01-05 21:43] VITALS: BP 148/74
[2021-01-05] MEDS ORDERED: ACETAMINOPHEN 325 MG TABLET PO PRN (22:00)
[2021-01-05] MEDS ORDERED: ALBUTEROL/IPRATROPIUM 2.5MG/0.5MG, 3 ML HHN PRN (22:00)
[2021-01-05] MEDS: AZITHROMYCIN 500 MG in SODIUM CHLORIDE 0.9% 250 ML IV SCH (22:25)
[2021-01-05] MEDS: ENOXAPARIN 40 MG/0.4 ML SQ SCH (22:31)
[2021-01-06 00:16] VITALS: BP 119/74
[2021-01-06 05:57] LABS: BASOPHILS % (AUTO) 0 % (0-1); EOSINOPHILS % (AUTO) 0 % (1-7); LYMPHOCYTES % (AUTO) 4 % (22-44); MD NO; MEAN CORPUSCULAR HEMOGLOBIN 33.7 pg (27.5-34.5); MEAN CORPUSCULAR HGB CONC 33.8 g/dL (33.2-36.2); MEAN PLATELET VOLUME 8.8 fL (7.4-10.4); MONOCYTES % (AUTO) 1 % (2-9); NEUTROPHILS % (AUTO) 95 % (42-75); PLATELET COUNT 138 x10^3/uL (130-400); RED BLOOD COUNT 3.65 x10^6/uL (4.38-5.82); RED CELL DISTRIBUTION WIDTH 14.1 % (9.4-14.8)
[2021-01-06 06:08] LABS: ALBUMIN 2.8 g/dL (3.4-5.0); ANION GAP 6 mmol/L (5-15); CALCIUM 8.6 mg/dL (8.5-10.1); CHLORIDE 103 mmol/L (98-107)
[2021-01-06 06:13] LABS: ALANINE AMINOTRANSFERASE 33 U/L (12-78); ALKALINE PHOSPHATASE 102 U/L (45-117); BILIRUBIN,TOTAL 0.5 mg/dL (0.2-1.0); CREATININE 1.53 mg/dL (0.7-1.3); TOTAL PROTEIN 5.6 g/dL (6.4-8.2)
[2021-01-06] MEDS: BUDESONIDE 0.5 MG/2 ML INHA NPPB SCH ×2 (07:19→21:00)
[2021-01-06] MEDS: ALBUTEROL/IPRATROPIUM 2.5MG/0.5MG, 3 ML NPPB SCH ×2 (07:19→21:00)
[2021-01-06 07:37] VITALS: BP 175/72
[2021-01-06] MEDS: POTASSIUM CHLORIDE 10 MEQ TABLET.ER PO SCH (08:59)
[2021-01-06] MEDS: ASPIRIN 81 MG TABLET EC PO SCH (08:59)
[2021-01-06] MEDS: CARVEDILOL 3.125 MG TABLET PO SCH ×2 (08:59→20:13)
[2021-01-06] MEDS: FUROSEMIDE 20 MG TABLET PO SCH (08:59)
[2021-01-06] MEDS ORDERED: FLUTICASONE/VILANTEROL 200-25MCG/INH INH SCH (09:00)
[2021-01-06] MEDS: IRBESARTAN 300 MG TABLET PO SCH (09:01)
[2021-01-06 13:39] VITALS: BP 165/72
[2021-01-06 18:50] VITALS: BP 154/79
[2021-01-06] MEDS ORDERED: ATORVASTATIN 40 MG TABLET PO SCH (21:00)
[2021-01-06] MEDS: ENOXAPARIN 40 MG/0.4 ML SQ SCH (22:00)
[2021-01-06] MEDS: AZITHROMYCIN 500 MG in SODIUM CHLORIDE 0.9% 250 ML IV SCH (22:08)
[2021-01-07 00:24] VITALS: BP 139/74
[2021-01-07 05:04] LABS: BASOPHILS % (AUTO) 0 % (0-1); EOSINOPHILS % (AUTO) 0 % (1-7); LYMPHOCYTES % (AUTO) 5 % (22-44); MEAN CORPUSCULAR HEMOGLOBIN 33.3 pg (27.5-34.5); MEAN CORPUSCULAR HGB CONC 33.3 g/dL (33.2-36.2); MEAN PLATELET VOLUME 8.3 fL (7.4-10.4); MONOCYTES % (AUTO) 7 % (2-9); NEUTROPHILS % (AUTO) 89 % (42-75); PLATELET COUNT 197 x10^3/uL (130-400); RED CELL DISTRIBUTION WIDTH 14.7 % (9.4-14.8)
[2021-01-07 05:13] LABS: ALANINE AMINOTRANSFERASE 29 U/L (12-78); ALBUMIN 2.9 g/dL (3.4-5.0); ANION GAP 3 mmol/L (5-15); CHLORIDE 104 mmol/L (98-107); CREATININE 1.05 mg/dL (0.7-1.3)
[2021-01-07 05:15] LABS: ALKALINE PHOSPHATASE 90 U/L (45-117); BILIRUBIN,TOTAL 0.6 mg/dL (0.2-1.0); TOTAL PROTEIN 5.3 g/dL (6.4-8.2)
[2021-01-07 05:17] LABS: MD NO
[2021-01-07 06:46] VITALS: BP 168/78
[2021-01-07] MEDS ORDERED: AZIT500T2 PO (07:28)
[2021-01-07] MEDS ORDERED: PRED20TA PO (07:28)
[2021-01-07] MEDS ORDERED: ALBU8.5H8 INH (07:28)
[2021-01-07] MEDS: IRBESARTAN 300 MG TABLET PO SCH (08:12)
[2021-01-07] MEDS: POTASSIUM CHLORIDE 10 MEQ TABLET.ER PO SCH (08:12)
[2021-01-07] MEDS: FUROSEMIDE 20 MG TABLET PO SCH (08:12)
[2021-01-07] MEDS: CARVEDILOL 3.125 MG TABLET PO SCH (08:12)
[2021-01-07] MEDS: ASPIRIN 81 MG TABLET EC PO SCH (08:12)
[2021-01-07] MEDS: ALBUTEROL/IPRATROPIUM 2.5MG/0.5MG, 3 ML NPPB SCH (09:45)
[2021-01-07] MEDS: BUDESONIDE 0.5 MG/2 ML INHA NPPB SCH (09:45)
[2021-01-07 13:24] VITALS: BP 158/60
== END 2021-01-07 15:14 | disposition home health service (06) | DRG 189 ==
LOC: ED 18:16 → EDIP 20:18 → 3N 21:30 → DCLOUNGE 01-07 15:09
PROVIDERS: ADMIT Family Medicine; ATTEND Hospitalist
DX: J96.01 Acute respiratory failure with hypoxia (principal); J44.1 Chronic obstructive pulmonary disease with (acute) exacerbation; I11.0 Hypertensive heart disease with heart failure; I25.10 Atherosclerotic heart disease of native coronary artery without angina pectoris; I50.9 Heart failure, unspecified; K44.9 Diaphragmatic hernia without obstruction or gangrene; Z87.891 Personal history of nicotine dependence; Z87.01 Personal history of pneumonia (recurrent); Z79.899 Other long term (current) drug therapy; Z95.4 Presence of other heart-valve replacement; Z79.891 Long term (current) use of opiate analgesic; Z79.82 Long term (current) use of aspirin; Z79.01 Long term (current) use of anticoagulants; Z82.49 Family history of ischemic heart disease and other diseases of the circulatory system; Z83.6 Family history of other diseases of the respiratory system; Z95.0 Presence of cardiac pacemaker
CPT/HCPCS: 36415; 71045; 71260; 80048; 80053; 82040; 85025; 93306; 94640; 96361; 96374; 99285; G0378; J0456; J1650; J7613; J7626; Q9967; J2930; J7040; J7050; J7512

== ENCOUNTER 2021-03-23 07:38 | Outpatient (CLI) | payer MEDICARE, MEDICAID ==
[~2021-03-23 07:38] MED LIST changes: +ASCO500T8 PO; +AZIT500T2 PO; +CARV3.122 PO; +CHOL200052 PO; +FLUT1BLS3 IH; +IRON PO; +PRED20TA PO; +ZINC220T2 PO
[2021-03-23] MEDS ORDERED: LEUPROLIDE (ELIGARD) 22.5 MG SYR SQ ONE (10:15)
== END 2021-03-23 23:59 | disposition home or self-care (01) ==
LOC: ROC 07:38
PROVIDERS: ATTEND Radiology Radiation Oncology
DX: Z51.11 Encounter for antineoplastic chemotherapy (principal); C61 Malignant neoplasm of prostate
CPT/HCPCS: 96402; J9217